=== PATIENT | female | born 1985 | race Two or more races ===

== ENCOUNTER → 2020-12-12 | Outpatient (CLI) | payer OTHER | END | disposition home or self-care (01) | LOC: NST 16:36 | PROVIDERS: ATTEND Obstetrics & Gynecology | DX: Z34.83 Encounter for supervision of other normal pregnancy, third trimester (principal) ==

== ENCOUNTER 2020-12-23 14:15 | Inpatient (IN) | payer OTHER ==
[~2020-12-23] VITALS: Ht 162.6 cm; Wt 79.4 kg
== END 2021-01-11 15:11 | disposition home or self-care (01) | DRG 807 ==
LOC: LDR 01-08 22:17 → OB/GYN 01-09 15:13
PROVIDERS: ADMIT Obstetrics & Gynecology Maternal & Fetal Medicine; ATTEND Obstetrics & Gynecology Maternal & Fetal Medicine
PROC: 10E0XZZ Delivery of Products of Conception, External Approach (ICD-10-PCS; principal; 2021-01-08)
PROC: 0KQM0ZZ Repair Perineum Muscle, Open Approach (ICD-10-PCS; 2021-01-08)
PROC: 4A1HXFZ Monitoring of Products of Conception, Cardiac Rhythm, External Approach (ICD-10-PCS; 2021-01-08)
DX: O70.1 Second degree perineal laceration during delivery (principal); Z37.0 Single live birth; Z3A.39 39 weeks gestation of pregnancy; Z20.822 Contact with and (suspected) exposure to COVID-19

== ENCOUNTER 2021-01-06 12:53 | Outpatient (CLI) | payer OTHER | END 2021-01-06 13:57 | disposition home or self-care (01) | LOC: NST 12:53 | PROVIDERS: ATTEND Obstetrics & Gynecology Maternal & Fetal Medicine | DX: Z34.83 Encounter for supervision of other normal pregnancy, third trimester (principal) ==

== ENCOUNTER 2023-09-09 12:45 | Inpatient (IN) | payer OTHER ==
[~2023-09-09] VITALS: Ht 162.6 cm; Wt 72.6 kg
[2023-09-24] MEDS ORDERED: PRENATABS RX T1 EACH PO (07:48)
[2023-09-24] MEDS ORDERED: RINGERS SOLUTION,LACTATED 1,000 ML IV SCH (08:00)
[2023-09-24 08:21] LABS: HEMATOCRIT 33.3 % (36.0-45.00); HEMOGLOBIN 10.9 g/dL (12.0-15.00); MEAN CELL VOLUME 80.1 fL (80.00-100.00); MEAN CORPUSCULAR HEMOGLOBIN 26.2 pg (27.00-32.0); MEAN CORPUSCULAR HGB CONC 32.7 g/dl (32.0-36.0); PLATELET COUNT 251 K/uL (150-450); RED BLOOD COUNT 4.15 M/uL (4.00-6.00); RED CELL DISTRIBUTION WIDTH 16.1 % (11.5-14.5)
[2023-09-24 08:56] LABS: ALBUMIN 2.9 gm/dL (3.4-5.0); BILIRUBIN TOTAL 0.25 mg/dL (0.3-1.2); CALCIUM 9.7 mg/dL (8.5-10.1); CREATININE SERUM 0.92 mg/dL (0.55-1.02); GFR 67.96; GLOBULINA 3.3 G/DL (2.4-3.5); POTASSIUM 4.53 mEq/L (3.5-5.1); TOTAL PROTEIN 6.2 gm/dL (6.4-8.2)
[2023-09-24] MEDS ORDERED: LIDOCAINE HCL 1% 200MG/20ML VIAL IJ SCH (10:00)
[2023-09-24] MEDS ORDERED: OXYTOCIN 1,000 ML IV ONE (10:00)
[2023-09-24] MEDS ORDERED: IBUprofen 400 MG TABLET PO PRN (10:00)
[2023-09-24] MEDS ORDERED: CHLORHEXIDINE GLUCONATE 120 ML BOTTLE TP SCH (10:00)
[2023-09-24] MEDS ORDERED: ERYTHROMYCIN BASE 1 GM TUBE OP SCH (10:00)
[2023-09-24 10:27] LABS: INR < 0.93; PARTIAL THROMBOPLASTIN TIME 24.3 SECONDS (22.0-34.0); PROTHROMBIN TIME 9.6 SECONDS (9.0-11.5)
[2023-09-24] MEDS ORDERED: SENNA/DOCUSATE SODIUM 1 TAB TABLET PO SCH (21:00)
[2023-09-25 08:12] LABS: HEMATOCRIT 28.2 % (36.0-45.00); HEMOGLOBIN 9.6 g/dL (12.0-15.00); MEAN CELL VOLUME 79.3 fL (80.00-100.00); PLATELET COUNT 190 K/uL (150-450); RED BLOOD COUNT 3.56 M/uL (4.00-6.00)
[2023-09-25] MEDS ORDERED: PNV,CALCIUM 72/IRON/FOLIC ACID 1 TAB TABLET PO SCH (09:00)
== END 2023-09-26 16:03 | disposition home or self-care (01) | DRG 807 ==
LOC: OB/GYN 09-22 12:45 → LDR 09-24 07:29 → OB/GYN 09-24 07:29
PROVIDERS: Obstetrics & Gynecology Gynecology; ADMIT Obstetrics & Gynecology Maternal & Fetal Medicine; ATTEND Obstetrics & Gynecology Maternal & Fetal Medicine
PROC: 10E0XZZ Delivery of Products of Conception, External Approach (ICD-10-PCS; principal; 2023-09-24)
PROC: 0UQMXZZ Repair Vulva, External Approach (ICD-10-PCS; 2023-09-24)
PROC: 4A1HXCZ Monitoring of Products of Conception, Cardiac Rate, External Approach (ICD-10-PCS; 2023-09-24)
DX: O70.0 First degree perineal laceration during delivery (principal); Z37.0 Single live birth; O62.3 Precipitate labor; Z3A.40 40 weeks gestation of pregnancy; Z20.822 Contact with and (suspected) exposure to COVID-19

== ENCOUNTER 2023-09-23 09:35 | Outpatient (CLI) | payer OTHER ==
[2023-09-24] MEDS ORDERED: PRENATABS RX T1 EACH PO (07:48)
== END 2023-09-23 10:28 | disposition home or self-care (01) ==
LOC: NST 09:35
PROVIDERS: ATTEND Obstetrics & Gynecology
DX: Z34.83 Encounter for supervision of other normal pregnancy, third trimester (principal)